=== PATIENT | female | born 1960 ===

== ENCOUNTER 2018-07-31 08:05 | Emergency (ER) | payer OTHER ==
[2018-07-31 08:13] VITALS: BMI 26.6
[2018-07-31] MEDS ORDERED: Bacitracin 500 Units/gm Oint Foilpak UD ONE ×2 (09:24→13:47)
--- NOTE | 2018-07-31 09:39 | C.PDOC ---
History Of Present Illness 57 years old female presents to ED for complaints of chronic lower back pain that worsened 3 days ago. Patient describes pain is left sided, radiating ro left leg, painful with movement, and tingling sensation. Patient also reports irritation/ burning sensation around the bottom of her nares. Patient reports using lidoderm patch on her back with no relief. Denies urinary symptoms, or any other physical complaints. Patient is allergic to percocets. Time Seen by Provider: 07/31/18 08:17 Chief Complaint (Nursing): Back Pain History Per: Patient History/Exam Limitations: no limitations Onset/Duration Of Symptoms: Hrs Current Symptoms Are (Timing): Still Present Previous Symptoms: Back Pain Associated Symptoms: None Exacerbating Factor(s): Movement Recent travel outside of the [place]: No Past Medical History Reviewed: Historical Data, Nursing Documentation, Vital Signs Vital Signs: Last Vital Signs Temp 97.8 F 07/31/18 08:14 Pulse 102 H 07/31/18 08:14 Resp 20 07/31/18 08:14 BP 135/97 H 07/31/18 08:14 Pulse Ox 99 07/31/18 08:14 - Medical History PMH: HIV Family History: States: No Known Family Hx - Social History Hx Alcohol Use: No Hx Substance Use: No - Immunization History Hx Tetanus Toxoid Vaccination: No Hx Influenza Vaccination: No Hx Pneumococcal Vaccination: No Review Of Systems Constitutional: Negative for: Fever, Chills Gastrointestinal: Negative for: Nausea, Vomiting, Abdominal Pain, Diarrhea Genitourinary: Negative for: Dysuria Musculoskeletal: Positive for: Back Pain Skin: Positive for: Other (Irritation/ burning sensation of bottom nares ) Neurological: Negative for: Weakness, Numbness Physical Exam - Physical Exam Appears: Non-toxic, No Acute Distress Skin: Normal Color, Warm, Dry, No Rash Head: Atraumatic, Normacephalic Eye(s): bilateral: Normal Inspection, PERRL, EOMI Oral Mucosa: Moist Neck: Normal ROM, Supple Chest: Symmetrical, No Tenderness Cardiovascular: Rhythm Regular Respiratory: Normal Breath Sounds, No Rales, No Rhonchi, No Wheezing Back: Paraspinal Tenderness (Left sided ), Straight Leg Raising (20 degrees ) Extremity: Normal ROM Extremity: Bilateral: Atraumatic, Normal Color And Temperature, Normal ROM Pulses: Left Radial: Normal, Right Radial: Normal Neurological/Psych: Oriented x3, Normal Speech Gait: Steady ED Course And Treatment O2 Sat by Pulse Oximetry: 99 (RA) Pulse Ox Interpretation: Normal - Other Rad LS spine xray X-Ray: Viewed By Me, Read By Radiologist Interpretation: Accession No. : [id number]. Patient Name / ID : BENJAMÍN TOM / [id number]. Exam Date : 07/31/2018 08:55:29 ( Approved ). Study Comment : Sex / Age : F / 57Y. Creator : Caterina Hung MD. Dictator : Caterina Hung MD. Assessment Nurse : [employer] : Caterina Hung MD. Approver2 : Report Date : 07/31/2018 10:56:33. My Comment : . Date of service: 07/31/2018. PROCEDURE: Radiographs of the Lumbar Spine. HISTORY: left sciatica. COMPARISON: No prior. FINDINGS: BONES: Alignment appears satisfactory. No listhesis. Multilevel degenerative changes including small anterior osteophyte formation. No acute displaced fracture identified. DISC SPACES: L4-L5 intervertebral disc space narrowing and vacuum disc phenomenon. OTHER FINDINGS: Dense atherosclerotic calcification of the aorta. IMPRESSION: Degenerative changes. Progress Note: Administered Toradol and Valium. Ordered LS Spine X-Ray. On re- evaluation patient still c/o severe pain. Morphine 4 mg IM ordered. On the second evaluation patient feels better and is stable to be d/c home with PMD follow up. Disposition - Disposition Disposition: HOME/ ROUTINE Disposition Time: 13:39 Condition: IMPROVED Additional Instructions: Follow up with PMD within 1-2 days. Return to Ed if feel worse. Instructions: Sciatica Forms: [email or web address] (Macedonian) - Clinical Impression Clinical Impression: Sciatica - PA / RN RENAL / Resident Statement MD/DO has reviewed & agrees with the documentation as recorded. - Scribe Statement The provider has reviewed the documentation as recorded by the Scribe Elenita Florencek All medical record entries made by the Anita were at my direction and personally dictated by me. I have reviewed the chart and agree that the record accurately reflects my personal performance of the history, physical exam, medical decision making, and the department course for this patient. I have also personally directed, reviewed, and agree with the discharge instructions and disposition.
--- NOTE | 2018-07-31 10:59 | RAD ---
Date of service: 07/31/2018 PROCEDURE: Radiographs of the Lumbar Spine. HISTORY: left sciatica COMPARISON: No prior. FINDINGS: BONES: Alignment appears satisfactory. No listhesis. Multilevel degenerative changes including small anterior osteophyte formation. No acute displaced fracture identified. DISC SPACES: L4-L5 intervertebral disc space narrowing and vacuum disc phenomenon. OTHER FINDINGS: Dense atherosclerotic calcification of the aorta. IMPRESSION: Degenerative changes.
[2018-07-31] MEDS ORDERED: Morphine 4 MG/ML VIAL ONE (12:15)
[2018-07-31 12:56] VITALS: BP 123/74; PULSE 73; RESP 15; TEMP 97.8
[2018-07-31 13:40] VITALS: O2SAT 99
== END 2018-07-31 13:54 | disposition home or self-care (01) ==
LOC: C.ER 08:05
DX: M54.32 Sciatica, left side (principal)
CPT/HCPCS: 72100; 96372; 99285; J1885; J2270